=== PATIENT | female | born 1950 | race Caucasian/White ===

== ENCOUNTER 2019-09-20 19:26 | Emergency (ER) | payer MEDICARE, SELFPAY ==
[2019-09-20 19:45] VITALS: BP 171/85; PULSE 62; RESP 16; TEMP 36.4; O2SAT 97
[2019-09-20 19:59] LABS: Hematocrit 35.5 % (35.0-42.0); Hemoglobin 11.7 g/dL (11.7-13.8); Mean Corpuscular Hemoglobin 30.6 pg (27.0-31.0); Mean Corpuscular Volume 92.9 fL (78.0-102.0); Mean Platelet Volume 9.9 fl (9.2-11.8); Platelet Count Result 314 K/mm3 (150-420); Red Blood Count 3.82 M/mm3 (4.20-5.40); Red Cell Distribution Width 14.7 % (11.6-14.4); White Blood Count 6.1 K/mm3 (4.8-10.8)
--- NOTE | 2019-09-20 19:59 | ED.ABDPAIN ---
HPI - Abdominal Pain General Chief Complaint: Urogenital-Female Stated Complaint: Possible UTI, bleeding while urinating Source: patient Mode of arrival: ambulatory Limitations: no limitations History of Present Illness HPI narrative: this is a 69-year-old female with a history of CVA currently on Coumadin and aspirin, history of hypertension that presents with some lower abdominal suprapubic pressure with bilateral flank pain pain in her flanks is mild with no fever no chills no nausea or vomiting no chest pain no shortness of breath. Patient's symptoms started today, and patient noticed that she had hematuria as well. MD elicited complaint: abdominal pain ( suprapubic pressure) Onset (ago): day(s) Pain Consistency: constant Location: suprapubic Severity: mild Quality: other ( pressure sensation) Radiation: bilateral flank Migration to: suprapubic Exacerbating factors: nothing Relieving factors: nothing Associated symptoms: denies other symptoms and hematuria Related Data Home Medications Medication Instructions Recorded Confirmed amlodipine 5 mg PO DAILY 09/20/19 09/20/19 aspirin 81 mg PO DAILY 09/20/19 09/20/19 atorvastatin 40 mg PO DAILY 09/20/19 09/20/19 lisinopril 20 mg PO BID 09/20/19 09/20/19 warfarin 4 mg PO DAILY 09/20/19 09/20/19 Allergies Allergy/AdvReac Type Severity Reaction Status Date / Time codeine Allergy Unknown Verified 09/20/19 19:59 Review of Systems Review of Systems: All systems reviewed & are unremarkable except as noted in HPI and below PMFSH Past Medical History Medical History History of CVA (cerebrovascular accident) HLD (hyperlipidemia) HTN (hypertension) Exam Const: General: no acute distress and alert Orientation/consciousness: patient oriented x3 HENMT: Head: normal to inspection Eyes: Conjunctivae: conjunctivae normal Pupils: Equal, round and reactive pupils present EOM: EOMs intact bilaterally Neck: Neck: normal visual inspection, no lymphadenopathy and no meningeal signs Chest: Chest palpation & inspection: normal inspection of the chest Other: implantable chest device Resp: Effort & Inspection: normal respiratory effort Auscultation: clear to auscultation bilaterally Cardio: Rate: regular rate Rhythm: regular rhythm GI: GI Palp: Yes Tenderness to palpation present (GI) ( suprapubic tenderness) : General: Yes CVA tenderness Skin: General skin exam: normal color Rashes: no rashes Extrem: General: normal to inspection Psych: Mental Status: mental status grossly normal Course Course Emergency Course: Talked to patient about her current urinalysis and blood test and will be sending antibiotics to treat her UTI urinary tract infection. Vital Signs Vital signs: Vital Signs Temperature 36.4 C L 09/20/19 19:45 Pulse Rate 62 09/20/19 19:45 Respiratory Rate 16 09/20/19 19:45 Blood Pressure 171/85 H 09/20/19 19:45 Pulse Oximetry 97 09/20/19 19:45 Temperature 36.4 C L 09/20/19 19:45 Pulse Rate 62 09/20/19 19:45 Respiratory Rate 16 09/20/19 19:45 Blood Pressure 171/85 H 09/20/19 19:45 Pulse Oximetry 97 09/20/19 19:45 MDM - Abdominal Pain Lab Data Result diagrams: 09/20/19 19:55 Labs: Lab Results 09/20/19 09/20/19 09/20/19 Range/Units 19:55 19:55 19:55 WBC 6.1 (4.8-10.8) K/mm3 RBC 3.82 L (4.20-5.40) M/mm3 Hgb 11.7 (11.7-13.8) g/dL Hct 35.5 (35.0-42.0) % MCV 92.9 (78.0-102.0) fL MCH 30.6 (27.0-31.0) pg MCHC 33.0 (32.0-36.0) g/dL RDW 14.7 H (11.6-14.4) % Plt Count 314 (150-420) K/mm3 MPV 9.9 (9.2-11.8) fl PT Pending INR Pending Urine Color Pending Urine Appearance Pending Urine pH Pending Ur Specific [place] Pending Urine Protein Pending Urine Glucose (UA) Pending Urine Ketones Pending Ur Blood (Man) Pending Urine Nitrate Pendin
[2019-09-20 20:03] LABS: Add Urine Microscopic? YES; Appearance Urine Cloudy (Clear); Bilirubin Urine 2+ (Negative); Blood Urine 3+ (Negative); Color Urine Red (Yellow); Glucose Urine UA 3+ (Negative); Ketones Urine 2+ (Negative); Leukocyte Esterase Ur 2+ (Negative); Nitrate Urine Positive (Negative); Protein Urine 3+ (Negative); Urobilinogen Urine >=8.0 mg/dL (0.2-1.0); pH Urine 6.5 (5.0-8.0)
[2019-09-20 20:11] LABS: INR 2.8; Prothrombin Time 27.5 Seconds (9.64-11.0)
[2019-09-20 20:19] LABS: RBC Urine >75 /hpf (0-2); Squamous Epithelial Cell Urine Few /hpf (Few)
[2019-09-20 20:20] LABS: Bacteria Urine 2+ /hpf
[2019-09-20] MEDS: NITROFURANTOIN MONOHYD MACROCR 100 MG CAP PO (20:35)
== END 2019-09-20 20:38 | disposition home or self-care (01) ==
PROVIDERS: Emergency Provider Emergency Medicine; PCP Family Medicine
DX: N30.01 Acute cystitis with hematuria (principal)
CPT/HCPCS: 36415; 81001; 85027; 85610; 99283; A9270

== ENCOUNTER 2020-07-12 08:49 | Outpatient (CLI) | payer MEDICARE, SELFPAY | END 2020-07-12 08:50 | disposition home or self-care (01) | LOC: CHSCOVIDVC 08:49 | PROVIDERS: PCP Family Medicine | DX: Z23 Encounter for immunization (principal) | CPT/HCPCS: 0011A; 91301 ==

== ENCOUNTER 2020-08-09 08:44 | Outpatient (CLI) | payer MEDICARE, SELFPAY | END 2020-08-09 08:45 | disposition home or self-care (01) | LOC: CHSCOVIDVC 08:45 | PROVIDERS: PCP Family Medicine | DX: Z23 Encounter for immunization (principal) | CPT/HCPCS: 0012A; 91301 ==

== ENCOUNTER 2020-08-10 09:23 | Emergency (ER) | payer MEDICARE, SELFPAY ==
[2020-08-10 10:05] LABS: Basophils Absolute Auto 0.05 K/mm3 (0.00-0.10); Basophils Percent Auto 0.5 % (0.0-1.0); Eosinophils Percent Auto 2.2 % (1.0-6.0); Hematocrit 37.7 % (35.0-42.0); Hemoglobin 12.3 g/dL (11.7-13.8); Immature Granulocyte Absolute 0.04 K/mm3 (0.00-0.00); Immature Granulocyte Percent A 0.4 % (0.0-0.0); Lymphocytes Absolute Auto 0.79 K/mm3 (1.10-4.50); Lymphocytes Percent Auto 8.5 % (18.0-42.0); Mean Corpuscular HGB Conc 32.6 g/dL (32.0-36.0); Mean Corpuscular Hemoglobin 30.4 pg (27.0-31.0); Mean Corpuscular Volume 93.1 fL (78.0-102.0); Mean Platelet Volume 9.8 fl (9.2-11.8); Monocytes Absolute Auto 0.63 K/mm3 (0.10-0.90); Monocytes Percent Auto 6.8 % (2.0-11.0); Neutrophils Absolute Auto 7.6 K/mm3 (1.7-7.2); Neutrophils Percent Auto 81.6 % (50.0-70.0); Platelet Count Result 265 K/mm3 (150-420); Red Blood Count 4.05 M/mm3 (4.20-5.40); Red Cell Distribution Width 13.8 % (11.6-14.4); White Blood Count 9.3 K/mm3 (4.8-10.8)
[2020-08-10 10:10] VITALS: BP 157/71; PULSE 80; RESP 16; TEMP 36.8; O2SAT 98
[2020-08-10 10:11] LABS: Add Urine Microscopic? YES; Appearance Urine Cloudy (Clear); Bilirubin Urine Negative (Negative); Blood Urine 3+ (Negative); Glucose Urine UA Negative (Negative); Ketones Urine Negative (Negative); Leukocyte Esterase Ur Trace (Negative); Nitrate Urine Negative (Negative); Protein Urine 3+ (Negative); Specific Grav Ur 1.025 (1.010-1.020); Urobilinogen Urine 0.2 mg/dL (0.2-1.0)
[2020-08-10 10:16] LABS: RBC Urine >75 /hpf (0-2); Squamous Epithelial Cell Urine Rare /hpf (Few)
[2020-08-10 10:17] LABS: Bacteria Urine 2+ /hpf; Color Urine Red (Yellow)
[2020-08-10 10:18] LABS: INR 2.9; Prothrombin Time 29.9 Seconds (9.50-12.10)
[2020-08-10 10:22] LABS: Alanine Aminotransferase 29 U/L (14-59); Albumin Level 3.4 g/dL (3.4-5.0); Alkaline Phosphatase 96 U/L (46-116); Anion Gap 8 mmol/L (8-16); Aspartate Amino Transferase 18 U/L (15-37); Bilirubin,Total 0.5 mg/dL (0.00-1.00); Blood Urea Nitrogen 14 mg/dL (7-18); Calcium 8.7 mg/dL (8.5-10.1); Carbon Dioxide 28 mmol/L (21-32); Chloride 101 mmol/L (98-108); Estimated Glomerular Filt Rate 56; Glucose 154 mg/dL (70-99); Osmolality Calculated 287 mOsm/kg (285-295); Sodium 137 mmol/L (136-145); Total Protein 7.7 g/dL (6.4-8.2)
--- NOTE | 2020-08-10 10:40 | ED.MALEGU ---
HPI - Male Genitourinary General Chief complaint: Urogenital-Female Stated complaint: possible uti Time Seen by Provider: 08/10/20 09:26 Source: patient Mode of arrival: ambulatory Limitations: no limitations History of Present Illness HPI Narrative: this is a 70-year-old female presents with dysuria with hematuria has history of stroke and is currently on Coumadin with currently no flank pain no nausea vomiting no fever chills does have suprapubic pressure with no diarrhea or constipation. Onset (ago): day(s) Duration: intermittent Related Data Home Medications Medication Instructions Recorded Confirmed amlodipine 5 mg PO DAILY 09/20/19 08/10/20 aspirin 81 mg PO DAILY 09/20/19 08/10/20 atorvastatin 40 mg PO DAILY 09/20/19 08/10/20 lisinopril 20 mg PO BID 09/20/19 08/10/20 warfarin 4 mg PO DAILY 09/20/19 08/10/20 Allergies Allergy/AdvReac Type Severity Reaction Status Date / Time codeine Allergy Unknown Verified 09/20/19 19:59 Review of Systems Review of Systems: All systems reviewed & are unremarkable except as noted in HPI and below [facility] Past Medical History Medical History (Updated 08/10/20 @ 10:45 by Raza Baumann MD) History of CVA (cerebrovascular accident) HLD (hyperlipidemia) HTN (hypertension) Exam Const: General: cooperative, healthy appearing, comfortable, no acute distress, well developed, alert, awake and Physically active HENMT: General nose exam: Normal external nose present Mouth: Yes Normal oral and palatal mucosa present Eyes: General: appearance normal, both eyes and all related structures Neck: Thyroid: thyroid normal Chest: Chest palpation & inspection: normal inspection of the chest and normal palpation of entire chest wall Resp: Effort & Inspection: normal respiratory effort and able to speak in complete sentences Auscultation: clear to auscultation bilaterally Cardio: Jugular venous distension: no JVD Palpation: normal PMI Rate: regular rate Rhythm: regular rhythm Heart sounds: S1 normal heart sound present GI: Inspection: normal to inspection Auscultation: normal bowel sounds : Other: Suprapubic tenderness with palpation Back/Spine/Pelvis: Back: no CVA tenderness Cervical Spine: normal cervical lordosis Pelvis: no pain with anterior-posterior compression and no pain with lateral compression Neuro: General: oriented to person, oriented to place, oriented to time and patient oriented x3 Extrem: General: normal to inspection, full ROM and capillary refill normal Psych: Appearance: grossly normal and well kempt Mental Status: mental status grossly normal Course Course Emergency Course: re-evaluation of patient reviewed UA and lab findings does show that she has urinary tract infection and will be sending antibiotics to her pharmacy. MDM - Male Genitourinary Lab Data Result diagrams: 08/10/20 10:00 08/10/20 10:00 Labs: Lab Results 08/10/20 08/10/20 08/10/20 Range/Units 10:00 10:00 10:00 WBC 9.3 (4.8-10.8) K/mm3 RBC 4.05 L (4.20-5.40) M/mm3 Hgb 12.3 (11.7-13.8) g/dL Hct 37.7 (35.0-42.0) % MCV 93.1 (78.0-102.0) fL MCH 30.4 (27.0-31.0) pg MCHC 32.6 (32.0-36.0) g/dL RDW 13.8 (11.6-14.4) % Plt Count 265 (150-420) K/mm3 MPV 9.8 (9.2-11.8) fl Immature Gran % (Auto) 0.4 H (0.0-0.0) % Neut % (Auto) 81.6 H (50.0-70.0) % Lymph % (Auto) 8.5 L (18.0-42.0) % [place] % (Auto) 6.8 (2.0-11.0) % Eos % (Auto) 2.2 (1.0-6.0) % Baso % (Auto) 0.5 (0.0-1.0) % Lymph # (Auto) 0.79 L (1.10-4.50) K/mm3 [place] # (Auto) 0.63 (0.10-0.90) K/mm3 Eos # (Auto) 0.20 (0.02-0.50) K/mm3 Baso # (Auto) 0.05 (0.00-0.10) K/mm3 Abs Immat Gran (auto) 0.04 H (0.00-0.00) K/mm3 Absolute Neuts (auto) 7.6 H (1.7-7.2) K/mm3 Absolute Nucleated RBC 0.00 (0.00-0.00) K/mm3 Nucleated RBC % 0.0 (0-0.0) % PT 29.9 H (9.50-12.10) Seconds INR 2.9
[2020-08-10] MEDS: cefTRIAXone 1 GM VIAL IM (10:59)
[2020-08-10 11:14] VITALS: RESP 16
== END 2020-08-10 11:14 | disposition home or self-care (01) ==
PROVIDERS: Emergency Provider Emergency Medicine; PCP Family Medicine
DX: N39.0 Urinary tract infection, site not specified (principal); Z79.01 Long term (current) use of anticoagulants; Z79.899 Other long term (current) drug therapy
CPT/HCPCS: 36415; 80053; 81001; 85025; 85610; 96372; 99283; J0696

== ENCOUNTER 2021-10-04 09:18 | Emergency (ER) | payer MEDICARE, SELFPAY ==
[2021-10-04 09:39] VITALS: BP 152/51; PULSE 63; RESP 20; TEMP 36.6; O2SAT 95
--- NOTE | 2021-10-04 09:40 | ED.GENADULT ---
HPI - General Adult General Chief complaint: Urogenital-Female Stated complaint: possible UTI History of Present Illness HPI narrative: Estephanie is a 71F with a PMH of HTN, HLD, prior CVA that presented to the ED with hematuria, urinary frequency and pressure. There is no flank pain, fevers, chills, N/V or SOB. Related Data Home Medications Medication Instructions Recorded Confirmed amlodipine 5 mg tablet 5 mg PO DAILY 09/20/19 10/04/21 aspirin 81 mg chewable tablet 81 mg PO DAILY 09/20/19 10/04/21 atorvastatin 40 mg tablet 40 mg PO DAILY 09/20/19 10/04/21 lisinopril 20 mg tablet 20 mg PO BID 09/20/19 10/04/21 warfarin 4 mg tablet 2.5 mg PO DAILY 09/20/19 10/04/21 gabapentin 300 mg capsule 300 mg PO HS 10/04/21 10/04/21 Allergies Allergy/AdvReac Type Severity Reaction Status Date / Time codeine Allergy Unknown Verified 10/04/21 09:46 Review of Systems Review of Systems: All systems reviewed & are unremarkable except as noted in HPI and below [facility] Past Medical History Medical History (Updated 10/04/21 @ 10:03 by Jed Pryor DO) History of CVA (cerebrovascular accident) HLD (hyperlipidemia) HTN (hypertension) Exam Const: General: healthy appearing and no acute distress Nutritional Appearance: well nourished HENMT: Head: normal to inspection Eyes: Conjunctivae: conjunctivae normal Pupils: Equal, round and reactive pupils present Neck: Neck: normal visual inspection Chest: Chest palpation & inspection: normal inspection of the chest Resp: Effort & Inspection: normal respiratory effort Cardio: Rate: regular rate Rhythm: regular rhythm GI: GI Palp: Yes Soft to palpation and No Tenderness to palpation present (GI) : Other: No CVA tenderness or suprapubic tenderness Skin: General skin exam: normal color Neuro: General: patient oriented x3 and moves all extremities Extrem: General: normal to inspection Psych: Mental Status: mental status grossly normal Course Course Emergency Course: UA c/w UTI, given ceftriaxone Vital Signs Vital signs: Vital Signs Temperature 97.9 F 10/04/21 09:39 Pulse Rate 63 10/04/21 09:39 Respiratory Rate 20 10/04/21 09:39 Blood Pressure 152/51 H 10/04/21 09:39 Pulse Oximetry 95 10/04/21 09:39 Oxygen Delivery Room Air 10/04/21 09:39 Temperature 97.9 F 10/04/21 09:39 Pulse Rate 63 10/04/21 09:39 Respiratory Rate 20 10/04/21 09:39 Blood Pressure 152/51 H 10/04/21 09:39 Pulse Oximetry 95 10/04/21 09:39 Oxygen Delivery Room Air 10/04/21 09:39 Medical Decision Making Vital Signs Vital Signs: Vital Signs Temperature 97.9 F 10/04/21 09:39 Pulse Rate 63 10/04/21 09:39 Respiratory Rate 20 10/04/21 09:39 Blood Pressure 152/51 H 10/04/21 09:39 Pulse Oximetry 95 10/04/21 09:39 Oxygen Delivery Room Air 10/04/21 09:39 Temperature 97.9 F 10/04/21 09:39 Pulse Rate 63 10/04/21 09:39 Respiratory Rate 20 10/04/21 09:39 Blood Pressure 152/51 H 10/04/21 09:39 Pulse Oximetry 95 10/04/21 09:39 Oxygen Delivery Room Air 10/04/21 09:39 Lab Data Labs: Lab Results 10/04/21 Range/Units 09:31 Urine Color Red A (Yellow) Urine Appearance Clear (Clear) Urine pH 7.0 (5.0-8.0) Ur Specific [place] 1.010 (1.010-1.020) Urine Protein 2+ H (Negative) Urine Glucose (UA) Negative (Negative) Urine Ketones Negative (Negative) Ur Blood (Man) 3+ H (Negative) Urine Nitrate Positive H (Negative) Urine Bilirubin Negative (Negative) Urine Urobilinogen 0.2 (0.2-1.0) mg/dL Ur Leukocyte Esterase Trace H (Negative) Urine RBC 11-20 H (0-2) /hpf Urine WBC 0-3 (0-3) /hpf Ur Squamous Epith Cells Rare (Few) /hpf Urine Bacteria 1+ H (None) /hpf Discharge Plan Discharge Clinical Impression: Urinary (tract) obstruction Patient Disposition: Home, Self-Care Condition: Stable Instructions: Hematuria (ED) Prescription
[2021-10-04 09:44] LABS: Add Urine Microscopic? YES; Appearance Urine Clear (Clear); Bilirubin Urine Negative (Negative); Blood Urine 3+ (Negative); Color Urine Red (Yellow); Glucose Urine UA Negative (Negative); Ketones Urine Negative (Negative); Leukocyte Esterase Ur Trace (Negative); Nitrate Urine Positive (Negative); Protein Urine 2+ (Negative); Urobilinogen Urine 0.2 mg/dL (0.2-1.0)
[2021-10-04 09:51] LABS: Bacteria Urine 1+ /hpf; Squamous Epithelial Cell Urine Rare /hpf (Few); WBC Urine 0-3 /hpf (0-3)
[2021-10-04] MEDS: cefTRIAXone 1 GM VIAL IM (10:09)
[2021-10-04] MEDS: LIDOCAINE HCL 1% LOCAL INJ 10 ML VIAL (10:09)
[2021-10-04 10:22] VITALS: BP 148/55; PULSE 63; RESP 20; TEMP 36.7; O2SAT 95
== END 2021-10-04 10:24 | disposition home or self-care (01) ==
PROVIDERS: Emergency Provider Family Medicine; PCP Family Medicine
DX: N39.0 Urinary tract infection, site not specified (principal)
CPT/HCPCS: 81001; 96372; 99283; J0696

== ENCOUNTER 2022-02-07 07:24 | Emergency (ER) | payer MEDICARE, SELFPAY ==
[2022-02-07 07:31] VITALS: BP 149/71; PULSE 73; RESP 16; TEMP 36.2; O2SAT 100
--- NOTE | 2022-02-07 07:46 | ED.EXTPRO ---
HPI - Extremity Problem General Chief complaint: Extremity Injury, Lower Stated complaint: right foot pain Time Seen by Provider: 02/07/22 07:43 Source: patient and RN notes reviewed Mode of arrival: ambulatory Limitations: no limitations History of Present Illness HPI Narrative: Patient denies any recent injury. She says just started hurting last night. Hurts around her ankle. No history of gout. She denies any fever chills. MD Complaint: extremity pain and extremity swelling Onset (ago): day(s) (1) Pain Consistency: constant Location: right and lower extremity (ankle) Severity scale (1-10): 10 Quality: burning, aching and sharp Radiation: none Relieving factors: rest Exacerbating factors: range of motion, weight bearing, walking and palpation Related Data Home Medications Medication Instructions Recorded Confirmed amlodipine 5 mg tablet 5 mg PO DAILY 09/20/19 02/07/22 aspirin 81 mg chewable tablet 81 mg PO DAILY 09/20/19 02/07/22 atorvastatin 40 mg tablet 40 mg PO DAILY 09/20/19 02/07/22 lisinopril 20 mg tablet 20 mg PO BID 09/20/19 02/07/22 warfarin 4 mg tablet 2.5 mg PO DAILY 09/20/19 02/07/22 gabapentin 300 mg capsule 300 mg PO HS 10/04/21 02/07/22 Allergies Allergy/AdvReac Type Severity Reaction Status Date / Time codeine Allergy Unknown Verified 02/07/22 07:35 Review of Systems Review of Systems: All systems reviewed & are unremarkable except as noted in HPI and below PMFSH Past Medical History Medical History (Updated 02/07/22 @ 08:35 by Clayton Carey MD) History of CVA (cerebrovascular accident) HLD (hyperlipidemia) HTN (hypertension) Exam Const: General: healthy appearing, no acute distress and alert Nutritional Appearance: well nourished and obese Orientation/consciousness: patient oriented x3 Limitations: no limitations HENMT: Head: normal to inspection Ears: external ears normal Eyes: Conjunctivae: conjunctivae normal Pupils: Equal, round and reactive pupils present EOM: EOMs intact bilaterally Neck: Neck: normal visual inspection Resp: Effort & Inspection: normal respiratory effort Auscultation: clear to auscultation bilaterally Cardio: Rate: regular rate Rhythm: regular rhythm GI: GI Palp: Yes Soft to palpation and No Tenderness to palpation present (GI) Auscultation: normal bowel sounds Back/Spine/Pelvis: Cervical Spine: cervical ROM normal Thoracic/Lumbar Spine: thoraco-lumbar ROM normal Skin: General skin exam: normal color Rashes: no rashes Neuro: General: patient oriented x3, moves all extremities, no focal motor deficits and CN's II-XI intact bilaterally Speech: normal speech Extrem: General: normal exam except as noted Right lower extremity: ankle Details: tenderness Location: of the lateral malleolus and of the medial malleolus, swelling Details: diffusely, abnormal ROM Details: pain with active ROM Details: with plantar flexion, with dorsiflexion, with inversion and with eversion and pain with passive ROM Details: with plantar flexion, with dorsiflexion, with inversion and with eversion and warmth Location: diffusely Psych: Mental Status: mental status grossly normal Affect: normal affect Attitude: cooperative Course Vital Signs Vital signs: Vital Signs Temperature 36.2 C L 02/07/22 07:31 Pulse Rate 73 02/07/22 07:31 Respiratory Rate 16 02/07/22 07:31 Blood Pressure 149/71 H 02/07/22 07:31 Pulse Oximetry 100 02/07/22 07:31 Oxygen Delivery Room Air 02/07/22 07:31 Temperature 36.2 C L 02/07/22 08:40 Pulse Rate 73 02/07/22 08:40 Respiratory Rate 16 02/07/22 08:40 Blood Pressure 149/71 H 02/07/22 08:40 Pulse Oximetry 100 02/07/22 08:40 Oxygen Delivery Room Air 02/07/22 08:40 MDM - Extremity (Nontraumatic) MDM Narrative Medical decision making narrative: I considered ankle sprain or ankle fracture but patient denies any recent injury she said there was just pain. Also considered infectious process, gout
[2022-02-07 08:13] LABS: Basophils Absolute Auto 0.06 K/mm3 (0.00-0.10); Basophils Percent Auto 0.7 % (0.0-1.0); Eosinophils Absolute Auto 0.16 K/mm3 (0.02-0.50); Hemoglobin 12.3 g/dL (11.7-13.8); Immature Granulocyte Absolute 0.02 K/mm3 (0.00-0.00); Immature Granulocyte Percent A 0.2 % (0.0-0.0); Lymphocytes Absolute Auto 1.04 K/mm3 (1.10-4.50); Mean Corpuscular HGB Conc 33.2 g/dL (32.0-36.0); Mean Corpuscular Hemoglobin 31.9 pg (27.0-31.0); Mean Corpuscular Volume 96.1 fL (78.0-102.0); Mean Platelet Volume 9.8 fl (9.2-11.8); Monocytes Absolute Auto 0.72 K/mm3 (0.10-0.90); Neutrophils Percent Auto 75.1 % (50.0-70.0); Platelet Count Result 239 K/mm3 (150-420); Red Blood Count 3.85 M/mm3 (4.20-5.40); Red Cell Distribution Width 13.3 % (11.6-14.4)
[2022-02-07 08:26] LABS: Alanine Aminotransferase 32 U/L (14-59); Albumin Level 3.5 g/dL (3.4-5.0); Alkaline Phosphatase 95 U/L (46-116); Anion Gap 9 mmol/L (8-16); Aspartate Amino Transferase 19 U/L (15-37); Bilirubin,Total 0.6 mg/dL (0.00-1.00); Blood Urea Nitrogen 16 mg/dL (7-18); Calcium 8.6 mg/dL (8.5-10.1); Carbon Dioxide 28 mmol/L (21-32); Chloride 103 mmol/L (98-108); Estimated Glomerular Filt Rate > 60; Glucose 117 mg/dL (70-99); Osmolality Calculated 292 mOsm/kg (285-295); Potassium 4.4 mmol/L (3.5-5.1); Sodium 140 mmol/L (136-145); Total Protein 7.5 g/dL (6.4-8.2); Uric Acid 5.7 mg/dL (2.6-6.0)
[2022-02-07 08:29] LABS: CRP < 0.5 mg/dL (0.0-0.9)
--- NOTE | 2022-02-07 08:33 | PC.NURSE ---
patient comes out of room to nurses station stating she wants to go home. erp is notified that labs are back and patient is educated on why she needs blood work. patient is offered pain medication but she refuses. erp tried to get patient to go back to her room so he could go over lab work in private and patient refuses.
--- NOTE | 2022-02-07 08:39 | PC.NURSE ---
patient refused discharge vitals.
[2022-02-07 08:40] VITALS: BP 149/71; PULSE 73; RESP 16; TEMP 36.2; O2SAT 100
== END 2022-02-07 08:42 | disposition home or self-care (01) ==
PROVIDERS: Emergency Provider Emergency Medicine
DX: M25.571 Pain in right ankle and joints of right foot (principal); E78.5 Hyperlipidemia, unspecified; I10 Essential (primary) hypertension
CPT/HCPCS: 36415; 80053; 84550; 85025; 86140; 99283

== ENCOUNTER 2022-08-22 07:37 | Emergency (ER) | payer MEDICARE, SELFPAY ==
[2022-08-22 07:37] VITALS: BP 174/100; PULSE 98; RESP 20; TEMP 36.3; O2SAT 99
--- NOTE | 2022-08-22 07:43 | ED.ABDPAIN ---
HPI - Abdominal Pain General Chief Complaint: Urogenital-Female Stated Complaint: urinary pain; back pain Time Seen by Provider: 08/22/22 07:41 History of Present Illness HPI narrative: This is a 72-year-old female with past history of hypertension, A-fib on Coumadin, presenting to the emergency department complaining of lower abdominal pressure concerning for UTI. The patient states her symptoms began this morning. She rates her discomfort a 4/10; it does not radiate. She states this is associated with blood in her urine and her symptoms very similar to her previous urinary tract infections. She denies associated lightheadedness, shortness of breath, fevers, nausea or vomiting. Related Data Home Medications Medication Instructions Recorded Confirmed amlodipine 5 mg tablet 5 mg PO DAILY 09/20/19 08/22/22 aspirin 81 mg chewable tablet 81 mg PO DAILY 09/20/19 08/22/22 atorvastatin 40 mg tablet 40 mg PO DAILY 09/20/19 08/22/22 lisinopril 20 mg tablet 20 mg PO BID 09/20/19 08/22/22 warfarin 4 mg tablet 2.5 mg PO DAILY 09/20/19 08/22/22 gabapentin 300 mg capsule 300 mg PO HS 10/04/21 08/22/22 Allergies Allergy/AdvReac Type Severity Reaction Status Date / Time codeine Allergy Unknown Verified 08/22/22 07:53 Review of Systems Review of Systems: CONSTITUTIONAL: Denies fever, chills, or sweats. CARDIOVASCULAR: Denies chest pain, palpitations, or edema. RESPIRATORY: Denies cough or dyspnea. GASTROINTESTINAL: Suprapubic pressure denies nausea, vomiting, or diarrhea. GENITOURINARY: Denies dysuria or hematuria. MUSCULOSKELETAL: Denies back pain, joint pain, or myalgia. PSYCHIATRIC: Denies anxiety or depression. [facility] Past Medical History Medical History (Updated 08/22/22 @ 08:17 by Luis Nayak MD) History of CVA (cerebrovascular accident) HLD (hyperlipidemia) HTN (hypertension) Social History Social History (Updated 08/22/22 @ 07:44 by Luis Nayak MD) Smoking status: Never smoker Alcohol intake: never Substance use: never Exam Narrative: GENERAL: Well-developed, well-nourished, and in no acute distress. HEAD: Normocephalic, atraumatic. EYES: PERRLA and EOMI. CHEST: Clear to auscultation. No respiratory distress. No wheezes rales or rhonchi HEART: Regular rate and rhythm. No murmur heard. Normal peripheral pulses. ABDOMEN: Soft, nontender, nondistended, normal active bowel sounds. No CVA tenderness to palpation EXTREMITIES: Normal range of motion. No edema. SKIN: Warm, dry, no rash. NEURO: No focal deficits. Alert and oriented x3. PSYCH: Normal mood and affect. Course Course Emergency Course: 08:08 - UA demonstrates hematuria with a small amount of proteinuria. At this time it is negative for leukocyte esterase and nitrates. Review of her previous UAs appears very similar. I suspect the hematuria is related to her use of Coumadin. Given her similar symptoms, will treat for urinary tract infection with recommendation for her to follow-up with her primary care doctor for reevaluation. Vital Signs Vital signs: Vital Signs Temperature 97.3 F L 08/22/22 07:37 Pulse Rate 98 08/22/22 07:37 Respiratory Rate 20 08/22/22 07:37 Blood Pressure 174/100 H 08/22/22 07:37 Pulse Oximetry 99 08/22/22 07:37 Oxygen Delivery Room Air 08/22/22 07:37 Temperature 97.3 F L 08/22/22 07:37 Pulse Rate 98 08/22/22 07:37 Respiratory Rate 20 08/22/22 07:37 Blood Pressure 174/100 H 08/22/22 07:37 Pulse Oximetry 99 08/22/22 07:37 Oxygen Delivery Room Air 08/22/22 07:37 MDM - Abdominal Pain MDM Narrative Medical decision making narrative: Plan: Labs, reassess Differential Diagnosis Differential diagnosis: Likely calculus of kidney and other (UTI, other) Discharge Plan Discharge Clinical Impression: Suprapubic abdominal pain Urinary tract infection Qualifiers: Urinary tract infection type: acute cystitis Hematuria presence: with hematuria Qualifi
[2022-08-22 07:56] LABS: Bilirubin Urine Negative (Negative); Blood Urine 2+ (Negative); Glucose Urine UA Negative (Negative); Ketones Urine Negative (Negative); Leukocyte Esterase Ur Negative LEU/UL (Negative); Nitrate Urine Negative (Negative); Protein Urine 1+ (Negative); Specific Grav Ur 1.015 (1.010-1.020); Urobilinogen Urine 0.2 mg/dL (0.2-1.0); pH Urine 6.5 (5.0-8.0)
[2022-08-22 07:59] LABS: Add Urine Microscopic? YES; Appearance Urine Turbid (Clear); Color Urine Red (Yellow)
[2022-08-22 08:00] LABS: RBC Urine >100 /hpf (0-2); Squamous Epithelial Cell Urine Occasional /hpf (Few)
[2022-08-22 08:25] VITALS: BP 160/76; PULSE 56; RESP 20; TEMP 36.7; O2SAT 97
== END 2022-08-22 08:55 | disposition home or self-care (01) ==
PROVIDERS: Emergency Provider Preventive Medicine Aerospace Medicine; PCP Family Medicine
DX: N30.01 Acute cystitis with hematuria (principal); I10 Essential (primary) hypertension; I48.91 Unspecified atrial fibrillation; E78.5 Hyperlipidemia, unspecified; Z79.01 Long term (current) use of anticoagulants; Z79.82 Long term (current) use of aspirin
CPT/HCPCS: 81001; 99283

== ENCOUNTER 2023-01-20 08:12 | Emergency (ER) | payer MEDICARE, SELFPAY ==
[2023-01-20 08:15] VITALS: BP 148/90; PULSE 70; RESP 18; TEMP 36.6; O2SAT 95
[2023-01-20 08:33] LABS: Appearance Urine Cloudy (Clear); Bilirubin Urine 3+ (Negative); Blood Urine 3+ (Negative); Glucose Urine UA Trace (Negative); Ketones Urine 1+ (Negative); Leukocyte Esterase Ur 3+ LEU/UL (Negative); Nitrate Urine Positive (Negative); Protein Urine 3+ (Negative); Urobilinogen Urine >=8.0 mg/dL (0.2-1.0)
--- NOTE | 2023-01-20 08:34 | ED.FEMALEGU ---
HPI - Female Genitourinary General Chief complaint: Urogenital-Female Stated complaint: UTI Time Seen by Provider: 01/20/23 08:19 Source: patient Mode of arrival: ambulatory Limitations: no limitations History of Present Illness HPI Narrative: is a 72-year-old female presents with dysuria with some hematuria and suprapubic tenderness and pressure with some no fever chills no nausea vomiting no flank pain. The patient is currently on Coumadin has history of hypertension, no chest pain no shortness of breath. MD elicited complaint: dysuria Onset (ago): day(s) Severity: mild Female Urogenital Radiation: Suprapubic Severity scale (1-10): 3 Quality of pain: cramping Consistency: constant Vaginal discharge: none Vaginal bleeding: none Urinary symptoms: Dysuria, Urgency, Frequency and Hematuria Exacerbating factors: none Relieving factors: none Associated symptoms: denies other symptoms Treatment prior to arrival: none Related Data Home Medications Medication Instructions Recorded Confirmed amlodipine 5 mg tablet 5 mg PO DAILY 09/20/19 01/20/23 atorvastatin 40 mg tablet 40 mg PO DAILY 09/20/19 01/20/23 lisinopril 20 mg tablet 20 mg PO BID 09/20/19 01/20/23 warfarin 4 mg tablet 2.5 mg PO DAILY 09/20/19 01/20/23 gabapentin 300 mg capsule 300 mg PO HS 10/04/21 01/20/23 cyclobenzaprine 10 mg tablet 10 mg PO TID PRN Pain 01/20/23 01/20/23 Allergies Allergy/AdvReac Type Severity Reaction Status Date / Time codeine Allergy Unknown Verified 01/20/23 08:15 Review of Systems Review of Systems: All systems reviewed & are unremarkable except as noted in HPI and below [facility]FSH Past Medical History Medical History (Updated 01/20/23 @ 08:43 by Raza Baumann MD) History of CVA (cerebrovascular accident) HLD (hyperlipidemia) HTN (hypertension) Social History Social History Smoking status: Never smoker Alcohol intake: never Substance use: never Exam Const: General: healthy appearing Nutritional Appearance: well nourished Orientation/consciousness: patient oriented x3 Limitations: no limitations Neck: Neck: normal visual inspection and no lymphadenopathy Chest: Chest palpation & inspection: normal inspection of the chest Resp: Effort & Inspection: normal respiratory effort Auscultation: clear to auscultation bilaterally Cardio: Rate: regular rate Rhythm: regular rhythm GI: GI Palp: Yes Soft to palpation and Yes Tenderness to palpation present (GI) ( Suprapubic tenderness with palpation) : General: Yes no CVA tenderness Urinary Catheter: Urinary Catheter: patent and draining Back/Spine/Pelvis: Back: no CVA tenderness Skin: General skin exam: normal color Rashes: no rashes Course Course Emergency Course: patient with history of UTIs currently on Coumadin, UA analyzed and does have positive leukocytes and positive esterase with positive blood suspect this is related to her Coumadin will give her a dose of antibiotic here in the ER and will prescribe antibiotics for outpatient. Advised patient to follow-up with primary care physician for further evaluation and treatment. Vital Signs Vital signs: Vital Signs Temperature 36.6 C 01/20/23 08:15 Pulse Rate 70 01/20/23 08:15 Respiratory Rate 18 01/20/23 08:15 Blood Pressure 148/90 H 01/20/23 08:15 Pulse Oximetry 95 01/20/23 08:15 Oxygen Delivery Room Air 01/20/23 08:15 Temperature 36.6 C 01/20/23 08:15 Pulse Rate 70 01/20/23 08:15 Respiratory Rate 18 01/20/23 08:15 Blood Pressure 148/90 H 01/20/23 08:15 Pulse Oximetry 95 01/20/23 08:15 Oxygen Delivery Room Air 01/20/23 08:15 MDM - Female Genitourinary Lab Data Labs: Lab Results 01/20/23 Range/Units 08:19 Urine Color Dark red (Yellow) Urine Appearance Cloudy A (Clear) Urine pH 7.0 (5.0-8.0) Ur Specific [place] 1.010 (1.010-1.020) Urine Protein 3+ H (Negative)
[2023-01-20 08:37] LABS: Add Urine Microscopic? YES; Bacteria Urine 1+ /hpf; Color Urine Dark Red (Yellow); RBC Urine >100 /hpf (0-2); Squamous Epithelial Cell Urine Few /hpf (Few)
[2023-01-20] MEDS: NITROFURANTOIN MONOHYD MACROCR 100 MG CAP PO (08:46)
== END 2023-01-20 08:52 | disposition home or self-care (01) ==
LOC: CHSED 08:50
PROVIDERS: Emergency Provider Emergency Medicine; PCP Family Medicine
DX: N30.01 Acute cystitis with hematuria (principal); E78.5 Hyperlipidemia, unspecified; I10 Essential (primary) hypertension; Z79.01 Long term (current) use of anticoagulants; Z79.899 Other long term (current) drug therapy; Z86.73 Personal history of transient ischemic attack (TIA), and cerebral infarction without residual deficits
CPT/HCPCS: 81001; 99283; A9270